=== PATIENT | female | born 1965 | race American Indian/Alaskan Native ===

== ENCOUNTER 2021-08-11 14:04 | Emergency (ER) | payer SELFPAY ==
--- NOTE | 2021-08-11 14:47 | Emergency Department Report ---
ED Neuro Deficit HPI - General Chief Complaint: Syncope Stated Complaint: SYNCOPE Time Seen by Provider: 08/11/21 14:11 Source: patient, EMS Mode of arrival: Stretcher Limitations: No Limitations - History of Present Illness Initial Comments: [facility] Consult Note # Demographics Consult Type: Acute Stroke Level 1 (0-4.5 hrs) Patient Location: Emergency Room First Name: Arlene Last Name: Octavio Date of : 1965 Age: 56 Gender: Female Facility: [facility] Time of Initial Page ( Time): 08/11/2021, 14:11 Time of Return Call ( Time): 08/11/2021, 14:12 # HPI Chief Complaint: Syncope History: Patient reported feeling lightheaded & tunnel vision at work, then passing out around 1:45pm. This has happened previously "about a year ago, & they told me I would have to have brain surgery." Reported bilateral leg weakness prior to episode. Denied mouth trauma or sphincter incontinence. Patient also reported significant psychosocial stress, losing her fianc within the past year (active empathetic listening provided). Last Known Normal: I have collected independent history specific to time last normal or last known well. We have collaborated with the provider and at this time, we have the most current timeline with the information that is available. 1:45pm Duration: improving resolved minutes Associated Symptoms: headache no nausea syncope no vomiting # Scores Time of exam and NIHSS ( Time): 08/11/2021, 14:19 Level of Consciousness 1a: [0] = Alert; keenly responsive LOC Questions 1b: [0] = Answers both questions correctly LOC Commands 1c: [0] = Performs both tasks correctly Best Gaze 2: [0] = Normal Visual 3: [0] = No visual loss Facial Palsy 4: [1] = Minor paralysis Motor Arm Left 5a: [0] = No drift Motor Arm Right 5b: [0] = No drift Motor Leg Left 6a: [0] = No drift Motor Leg Right 6b: [0] = No drift Limb Ataxia 7: [0] = Absent Sensory 8: [0] = Normal Best Language 9: [0] = No aphasia Dysarthria 10: [0] = Normal Extinction and Inattention 11: [0] = No abnormality NIHSS Total: 1 Modified [place] Scale (mRS) pre-stroke: [0] = No Symptoms Modified Alyssa Scale total: 0 VAN Screening: Negative # Exam Mental Status: Patient reported feeling dizzy upon being sat up in the stretcher. Cranial Nerves: right facial droop Mild right nasolabial fold flattening # ROS Constitutional: Reported having a cold one week ago Pulmonary: shortness of breath Cardiovascular: no chest pain # PMH-FH-SH Past Medical History: stroke Insomnia; stroke reported last year, reportedly "got hot & dizzy, & I couldn't move my arms" Social History: smoker occasional alcohol THC Allergies: Aspirin - hives # Data Time Head CT personally read by me (Eastern Time): 08/11/2021, 14:[address]: no bleed preliminarily reviewed by me, please refer to radiology read for official reading # Assessment Impression: Syncopal episode # Plan Thrombolytic/Intervention: NOT IV Thrombolysis or IA Intervention candidate Thrombolytic Exclusion (< 3 hour window): other (see below) Thrombolytic Exclusion: Suspected syncopal episode, NIHSS 1 (mild nasolabial fold flattening) Target Blood Pressure: Orthostatic vital signs Labs: CBC comprehensive metabolic panel hemoglobin A1c lipid panel TSH ua Imaging: (urgency: routine): CT Angiogram Head and CT Angiogram Neck MRI Brain without contrast Diagnostic Test: echo without bubble study EEG EKG Therapy/Evaluation: PT/OT evaluation DVT Prophylaxis: SCD chemical DVT prophylaxis Other: telemetry monitoring would not pursue stroke work-up if MRI is negative I have discussed my recommendations with the referring provider 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 ED Disposition Clinical Impression: Syncope Qualifiers: Syncope type: unspecified Qualified Code(s): R55 - Syncope and collapse Disposition: 09 ADMITTED INPATIENT Is pt being admited?: Yes Does the pt Need Aspirin: No Condition: Stable Instructions: Syncope (ED)
--- NOTE | 2021-08-11 14:49 | Cat Scan Report ---
. CT head/brain wo con INDICATION / CLINICAL INFORMATION: 56 years Female; CODE STROKE CALL ER MAIN AT [id number] neuro deficits <6hrs or sx present upon awakening. TECHNIQUE: Routine CT head without contrast. All CT scans at this location are performed using CT dos e reduction for ALARA by means of automated exposure control. COMPARISON: None. FINDINGS: BRAIN / INTRACRANIAL CONTENTS: Mild prominent ventricular system seen, which may be related to centra l atrophy. Sulcal markings about the cerebral convexities are well visualized throughout. There is suggestion of a small colloid cyst in the anterior, superior third ventricle. MRI may be hel pful for further further evaluation. However, the foramen of Monro regions appear to be patent. Otherwise, no acute hemorrhage, mass effect, midline shift, or acute, large territorial infarct. No signs of significant atrophy or chronic infarct. There are mild areas of decreased attenuation in the white matter of the cerebral hemispheres, as wel l as the gangliocapsular regions. These are nonspecific findings and may be related to microangiopath y (hypertension, diabetes, atherosclerosis), given the patient's age. CRANIOCERVICAL JUNCTION: No significant abnormality. ORBITS: No significant abnormality of visualized orbits. SINUSES / MASTOIDS: Mild mucosal thickening seen in the ethmoids. ADDITIONAL FINDINGS: None. IMPRESSION: 1. No focal mass, hemorrhage, or acute, large territorial infarct. Follow-up with diffusion imaging b y MRI, as clinically warranted. 2. Very small colloid cyst suggested. CODE STROKE: Exam Completed (FLAME GOUGER/CDT): 08/11/2021 1:21 PM Exam Reviewed (FLAME GOUGER/CDT): 1:34 PM Time of Communication (FLAME GOUGER/CDT): 1:38 PM Licensed Practitioner Receiving Report: Dr. Marques Signer Name: Avery Sesay MD, III Signed: 08/11/2021 2:45 PM Workstation Name: [employer]
--- NOTE | 2021-08-11 15:02 | Emergency Department Report ---
ED Syncope HPI - General Chief Complaint: Syncope Stated Complaint: SYNCOPE Time Seen by Provider: 08/11/21 14:11 - History of Present Illness Initial Comments: 56-year-old female presents to the ED following syncopal episode while at work. Patient states she works at [employer]. Patient reports she felt dizzy and lightheaded and then passed out. She denies any headache, chest pain, shortness of breath. She currently denies any headache. Patient denies any weakness or numbness. Patient reports she did not eat anything prior to syncopal episode. Patient also reports she recently used crack cocaine. Patient states 2 days ago. She denies any nausea or vomiting. Patient does report recent episodes of diarrhea, along with any nose and cough. Patient has not received a COVID-19 vaccine. Patient reports history of CVA, however she has no residual deficits from it. She also reports hydrocephalus and states she was scheduled to have "brain surgery", but she canceled it because she had to take care of her fianc. Timing/Prior Episodes: single episode today Precipitating Factors: Positive: lightheadedness Context: standing Loss of Consciousness: brief (seconds) Current Symptoms: back to normal. denies: chest pain, dizziness, headache - Related Data Allergies/Adverse Reactions: Allergies aspirin Allergy (Verified 08/11/21 14:08) Unknown morphine Adverse Reaction (Verified 08/11/21 15:28) Anaphylaxis Home Medications: Ambulatory Orders hydroCHLOROthiazide [HCTZ] 25 mg PO QDAY #30 tablet 08/11/21 ED Review of Systems ROS: Stated complaint: SYNCOPE Other details as noted in HPI Comment: All other systems reviewed and negative Respiratory: denies: shortness of breath Cardiovascular: denies: chest pain Gastrointestinal: denies: abdominal pain, nausea, vomiting Neurological: denies: headache ED Past Medical Hx - Medications Home Medications: Home Medications Medication Instructions Recorded Confirmed Last Taken Type hydroCHLOROthiazide [HCTZ] 25 mg PO QDAY #30 tablet 08/11/21 Unknown Rx ED Physical Exam - General Limitations: No Limitations General appearance: alert, in no apparent distress - Head Head exam: Present: atraumatic, normocephalic - Eye Eye exam: Present: normal appearance, EOMI - ENT ENT exam: Present: mucous membranes moist - Neck Neck exam: Present: normal inspection - Respiratory Respiratory exam: Present: normal lung sounds bilaterally. Absent: respiratory distress - Cardiovascular Cardiovascular Exam: Present: regular rate, normal rhythm - GI/Abdominal GI/Abdominal exam: Present: soft. Absent: distended, tenderness - Extremities Exam Extremities exam: Present: normal inspection - Neurological Exam Neurological exam: Present: alert, oriented X3 - Psychiatric Psychiatric exam: Present: normal affect, normal mood - Skin Skin exam: Present: warm, dry, intact, normal color ED Course Vital Signs 08/11/21 08/11/21 08/11/21 14:22 15:01 15:15 Temperature 98.1 F Pulse Rate 74 73 74 Respiratory 16 18 20 Rate Blood Pressure 164/104 164/104 O2 Sat by Pulse 98 95 96 Oximetry 08/11/21 08/11/21 08/11/21 15:30 16:17 16:31 Temperature Pulse Rate 77 102 H 86 Respiratory 15 21 14 Rate Blood Pressure 155/91 149/98 157/105 O2 Sat by Pulse 96 99 92 Oximetry 08/11/21 17:01 Temperature Pulse Rate 85 Respiratory 28 H Rate Blood Pressure 149/98 O2 Sat by Pulse 94 Oximetry - Consultations Consultation #1: 08/11/21 14:45 Teleneurologist requesting that pt get CTA Head and Neck ED Medical Decision Making - Lab Data Result diagrams: 08/11/21 14:55 08/11/21 14:55 - EKG Data -: EKG Interpreted by Me EKG shows normal: sinus rhythm, axis, intervals, QRS complexes, ST-T waves Rate: normal - EKG Data Interpretation: no acute changes - Radiology Data Radiology results: report reviewed, image reviewed - Medical Decision Making 56-year-old female presents to ED following syncopal episode at work. Patient reports she did not eat anything today. She also reports crack cocaine use in the last 2 days. Likely syncopal episode secondary to dehydration. Patient has no neuro deficits on exam. CT head, CTA head and neck are all unremarkable. Labs are normal except for mild hypokalemia. Potassium has been replaced. IV fluids given. Patient has eaten since being here in the ED and is feeling much better. Patient will be discharged at this time. Outpatient follow-up advised, return precautions given. - Differential Diagnosis Dehydration, arrhythmia, ACS Critical care attestation.: If time is entered above; I have spent that time in minutes in the direct care of this critically ill patient, excluding procedure time. ED Disposition Clinical Impression: Cocaine abuse, Hypertension Syncope Qualifiers: Syncope type: unspecified Qualified Code(s): R55 - Syncope and collapse Disposition: 01 HOME / SELF CARE / HOMELESS Is pt being admited?: No Condition: Stable Instructions: Substance Use Disorder, Hypertension, Adult, Hhxr-[id number]-Vord, Syncope, [id number]-[id number], Syncope (ED), Hypertension (ED) Prescriptions: hydroCHLOROthiazide [HCTZ] 25 mg PO QDAY #30 tablet Referrals: PRIMARY CARE, [Primary Care Provider] - 3-5 Days [facility] [Provider Group] - 3-5 Days Time of Disposition: 17:48 - Assessment Assessment Interval: Baseline - Level of Consciousness 1a. Level of Consciousness: alert/keenly responsive - LOC Questions 1b. LOC Questions: answers both correctly - LOC Command 1c. LOC Commands: performs tasks correctly - Best Gaze 2. Best Gaze: normal - Visual 3. Visual: no visual loss - Facial Palsy 4. Facial Palsy: normal symmetrical movement - Motor Arm 5a. Motor Arm Left: no drift 5b. Motor Arm Right: no drift - Motor Leg 6a. Motor Leg Left: no drift 6b. Motor Leg Right: no drift - Limb Ataxia 7. Limb Ataxia: absent - Sensory 8. Sensory: normal - Best Language 9. Best Language: no aphasia - Dysarthria 10. Dysarthria: normal - Extinction and Inattention 11. Extinction/Inattention: no abnormality - Scoring Total Score: 0 Stroke Severity: No Stroke Symptoms
[2021-08-11 15:31] LABS: Basophils % (Auto) 0.9 % (0.0-1.8); Eosinophils % (Auto) 0.4 % (0.0-4.3); Hematocrit 47.5 % (30.3-42.9); Hemoglobin 15.2 gm/dl (10.1-14.3); Lymphocytes # (Auto) 1.5 K/mm3 (1.2-5.4); Lymphocytes % (Auto) 32.7 % (13.4-35.0); Mean Corpuscular HGB Conc 32 % (30-34); Mean Corpuscular Volume 92 fl (79-97); Monocytes # (Auto) 0.4 K/mm3 (0.0-0.8); Monocytes % (Auto) 8.1 % (0.0-7.3); Platelet Count 257 K/mm3 (140-440); Red Blood Count 5.15 M/mm3 (3.65-5.03); Red Cell Distribution Width 16.4 % (13.2-15.2)
[2021-08-11 15:40] LABS: INR 0.97 (0.87-1.13)
[2021-08-11 15:41] LABS: Partial Thromboplastin Time 32.2 Sec. (24.2-36.6)
[2021-08-11 15:56] LABS: Blood Urea Nitrogen 4 mg/dL (7-17); Calcium 8.8 mg/dL (8.4-10.2); Hemolysis Index 6
[2021-08-11 16:00] LABS: BUN/Creatinine Ratio 7
--- NOTE | 2021-08-11 16:37 | XRay Report ---
CHEST 1 VIEW 08/11/2021 4:13 PM INDICATION / CLINICAL INFORMATION: syncope. COMPARISON: None available. FINDINGS: SUPPORT DEVICES: None. HEART / MEDIASTINUM: No significant abnormality. LUNGS / PLEURA: No significant pulmonary or pleural abnormality. No pneumothorax. ADDITIONAL FINDINGS: No significant additional findings. IMPRESSION: 1. No acute findings. Signer Name: Lorne Gann MD Signed: 08/11/2021 4:33 PM Workstation Name: [id number]
--- NOTE | 2021-08-11 16:49 | Cat Scan Report ---
CT angio neck, CT angio head HISTORY: stroke symptoms COMPARISON: CT head same day TECHNIQUE: CTA of the neck and head is performed after IV contrast. 3-D/MIP reformats were postproces sed. Percentage stenosis is determined by direct quantitative measurements of diseased internal dejesus tid artery diameter compared with normal distal internal carotid artery reference segments or by crit eria similar to NASCET where applicable. All CT scans at this location are performed using CT dose re duction for ALARA by means of automated exposure control. FINDINGS: CTA NECK: Aortic arch: No significant abnormality. Cervical vertebral arteries: No occlusion or hemodynamically significant stenosis. Common Carotid arteries: No occlusion or hemodynamically significant stenosis. Internal carotid arteries: No occlusion or hemodynamically significant stenosis. CTA HEAD: Intracranial internal carotid arteries: No occlusion or significant stenosis. Anterior cerebral arteries: No occlusion or significant stenosis. Middle cerebral arteries: No occlusion or significant stenosis. Intracranial vertebral arteries: No occlusion or significant stenosis. Basilar artery: Diminutive distal basilar artery due to the circulation of the posterior cerebr al arteries, normal common anatomic variant. No occlusion or significant stenosis. Posterior cerebral arteries: No occlusion or significant stenosis. No aneurysm. Additional findings: Severe emphysema. IMPRESSION: 1. CTA NECK: No occlusion or significant stenosis of the carotid or vertebral arteries. 2. CTA HEAD: No occlusion or significant stenosis of the major intracranial vasculature. Signer Name: Richie Leal MD Signed: 08/11/2021 4:44 PM Workstation Name: [id number]
[2021-08-11 16:55] LABS: Amphetamine Screen,Urine Negative; Benzodiazepines Screen,Urine Negative; Cannabinoid Screen,Urine Negative; Methadone Screen,Urine Negative; Opiate Screen,Urine Negative
[2021-08-11 16:59] LABS: Bacteria,Urine 1+ /HPF (Negative); Bilirubin,Urine NEG (Negative); Blood,Urine NEG (Negative); Color,Urine Yellow (Yellow); Mucus,Urine FEW /HPF; Protein,Urine <15 mg/dL mg/dL (Negative)
[2021-08-11 17:08] LABS: Cocaine Screen,Urine Positive
[2021-08-11] MEDS: SODIUM CHLORIDE 0.9% 1000 ML 1,000 ML IV ONE (17:19)
[2021-08-11] MEDS: POTASSIUM CHLORIDE ER 20 MEQ TAB PO ONE (17:19)
[2021-08-11 19:16] VITALS: BP 138/92
--- NOTE | 2021-08-12 14:36 | Electrocardiograph Report ---
[facility] Test Date: 2021-08-11 Test Time: 15:08:49 Pat Name: TRISTIN PATIÑO Department: Room: Gender: F [employer]: [id number] : 1965 Requested By: MARCELL DE LA ROSA Order Number: [id number] Reading MD: Miguel Davies Measurements Intervals [place] Rate: 73 P: 72 MN: 144 QRS: 32 QRSD: 85 T: 64 QT: 443 QTc: 488 Interpretive Statements Sinus rhythm No previous ECG available for comparison Electronically Signed On 08-12-2021 14:35:57 EST by Miguel Davies
== END 2021-08-11 19:16 | disposition home or self-care (01) ==
LOC: ED 14:04
DX: R55 Syncope and collapse (principal); F14.10 Cocaine abuse, uncomplicated; I10 Essential (primary) hypertension
CPT/HCPCS: 36415; 70450; 70496; 70498; 71045; 80048; 80307; 81001; 84484; 85025; 85610; 85670; 85730; 93005; 96360; 99285; J7030; Q9967; Q0162